=== PATIENT | female | born 1950 | race Caucasian/White ===

== ENCOUNTER → 2024-01-24 | Outpatient (CLI) | payer MEDICARE, OTHER, SELFPAY ==
--- NOTE | 2024-01-24 14:30 | XR_ITS ---
Examination: Screening digital mammography, bilateral Computer aided detection 3-D breast Tomosynthesis, bilateral Date and time of exam: January 24, 2024 1423 hours Compared to mammograms dating to November 12, 2012 Indication: Screening Technique: Nonmagnified MLO, CC views of the breasts to been obtained, reconstructed from 3-D Tomosynthesis images. R2 computer aided detection program utilized for evaluation of suspicious masses and/or abnormal calcifications. 3-D Tomosynthesis images obtained. Findings: The breasts are extremely dense, which limits the sensitivity of mammography Benign calcifications. 3 mm circumscribed nodule 12:00 position right breast IMPRESSION: BI-RADS Category 0: Incomplete: Need additional imaging evaluation 3 mm circumscribed nodule 12:00 position right breast, recommend follow-up spot tomographic views of this nodule as well as right breast sonography to complete the workup
== END | disposition home or self-care (01) ==
LOC: CDIM 14:06
PROVIDERS: Referring Provider Obstetrics & Gynecology; Visit Provider Obstetrics & Gynecology
DX: Z12.31 Encounter for screening mammogram for malignant neoplasm of breast (principal); R92.8 Other abnormal and inconclusive findings on diagnostic imaging of breast; N63.15 Unspecified lump in the right breast, overlapping quadrants
CPT/HCPCS: 77063; 77067

== ENCOUNTER → 2024-04-11 | Outpatient (CLI) | payer MEDICARE, OTHER, SELFPAY ==
--- NOTE | 2024-04-11 11:00 | XR_ITS ---
Examination: Breast ultrasound, unilateral, right complete Date and time of exam: April 11, 2024 1126 hours INDICATIONS: Mammogram January 24, 2024 3 mm circumscribed nodule 12:00 position right breast Technique: Real-time baez scale ultrasonographic imaging performed right breast including all 4 quadrants as well as nipple retroareolar and axillary region. Findings: 12:00 oval mass circumscribed 3 x 3 mm 8:00 oval mass circumscribed 3 x 2 mm IMPRESSION: BI-RADS Category 3: Probably benign findings One additional 6 month right breast sonogram follow-up is needed to document stability of nodules described above
--- NOTE | 2024-04-11 11:30 | XR_ITS ---
Examination: Diagnostic digital mammography, unilateral, right Computer aided detection 3-D breast Tomosynthesis, unilateral Date and time of exam: April 21, 2024 1141 hours INDICATIONS: Mammogram January 24, 2024 3 mm circumscribed nodule 12:00 position right breast Technique: Nonmagnified MLO, CC views of the right breast have been obtained, reconstructed from 3-D Tomosynthesis images. R2 computer aided detection program utilized for evaluation of suspicious masses and/or abnormal calcifications. 3-D Tomosynthesis images obtained. Findings: The breast is heterogeneously dense, which may obscure small masses 12:00 circumscribed nodule 3 mm is confirmed on the right breast sonogram today On the current study no suspicious mass is depicted Impression: BI-RADS category 2: Benign findings Return to yearly follow-up mammography Please see the right breast sonogram report today recommending six-month right breast sonogram follow-up to document stability of 12:00 and 8:00 nodules right breast
== END | disposition home or self-care (01) ==
LOC: CDIM 11:17
PROVIDERS: Referring Provider Obstetrics & Gynecology; Visit Provider Obstetrics & Gynecology
DX: R92.321 Mammographic fibroglandular density, right breast (principal); N63.15 Unspecified lump in the right breast, overlapping quadrants; N63.13 Unspecified lump in the right breast, lower outer quadrant
CPT/HCPCS: 76641; 77061; 77065; G0279

== ENCOUNTER 2025-02-01 13:02 | Inpatient (IN) | payer MEDICARE, OTHER, SELFPAY ==
[2025-02-01] VITALS (7 sets, daily range): BP systolic 111–137; BP diastolic 63–91; PULSE 66–111; RESP 16–99; TEMP 36.1–36.8; O2SAT 98–100; BMI 22.8; BMI 20.1
--- NOTE | 2025-02-01 13:11 | EKG_ITS ---
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
--- NOTE | 2025-02-01 13:22 | PD.EDCHEST ---
ED Chest Pain RME/HPI General Chief Complaint: Shortness of Breath/Dyspnea Stated Complaint: CHEST DISCOMFORT Time Seen by Provider: 02/01/25 14:04 Arrival date/time: 02/01/25 13:02 Limitations: no limitations RME / HPI RME / HPI narrative: DR. MELINA PARIS ED EVALUATION: 74-year-old female brought in by EMS for palpitations and chest pain described as a squishy pressure. She reports waking at 2:00 AM with sensation of her heart racing and feeling irregular. She felt well yesterday with no symptoms until this morning. At home her heart rate was noted to be 140, whereas her baseline is around 60. She exercises regularly. She follows with nut sifter Dr. Robbins, who has previously told her that her heart is structurally fine but she has an electrical problem. She has a history of tachycardia and atrial fibrillation in the past. Dr. Robbins contacted her this morning. No additional symptoms reported. Related Data Home Medications ?Medication ?Instructions ?Recorded ?Confirmed No Known Home Medications 02/01/25 02/01/25 Allergies Allergy/AdvReac Type Severity Reaction Status Date / Time ofloxacin (From Floxin) Allergy Severe Anaphylaxis Verified 02/01/25 13:29 azithromycin Allergy Verified 02/01/25 13:29 codeine Allergy Headache Verified 02/01/25 13:29 oxycodone Allergy Headache Verified 02/01/25 13:29 gluten AdvReac Depression Verified 02/01/25 13:29 DAIRY PRODUCTS AdvReac Mild Congested Uncoded 02/01/25 13:29 Review of Systems Review of Systems Systems Reviewed: All systems reviewed, normal except as documented Past Medical History Past Medical History NEUROLOGIC: Positive Neurological Disorders and Migraine; Negative Seizures CARDIAC: Positive Atrial Fibrillation; Negative Cardiac Disorders or Congestive Heart Failure RESPIRATORY: Positive Asthma (ALBUTEROL INHALER PRN); Negative Chronic Obstructive Pulmonary Disease (COPD) GASTROINTESTINAL: Negative Gastrointestinal Disorders GENITOURINARY: Negative Genitourinary Disorders or Renal Disease REPRODUCTIVE: Positive Previous Pregnancies MUSCULOSKELETAL: Positive Musculoskeletal Disorders and Osteoporosis (OSTEOPENIA) ENT: Positive Cataracts (BILATERAL) ENDOCRINE: Negative Endocrine Disorders, Diabetes Mellitus Type 1 or Diabetes Mellitus Type 2 HEMATOLOGIC: Negative Blood Disorders OTHER HISTORY: Positive Anesthesia Reactions (SEVERE NAUSEA), Chicken Pox, Measles and Mumps; Negative Falls, Blood Transfusions, Blood Transfusion Reaction, MRSA or Cancer Surgical History SURGICAL: Positive Joint Replacement (RIGHT KNEE), of Shoulder Sx (BILAT.) and Knee Sx (R KNEE TOTAL REPLACEMENT & L KNEE SURGERIES) Social History SMOKING STATUS: Never smoker ED Exam General Limitations: Present no limitations General appearance: Present alert and in no apparent distress Head Head exam: Present atraumatic, normocephalic and normal inspection Eye Eye exam: Present normal appearance, PERRL and EOMI ENT ENT exam: Present normal exam, normal oropharynx and mucous membranes moist Neck Neck exam: Present normal inspection, full ROM and trachea midline Chest Chest inspection: Present normal inspection and symmetric chest wall rise Respiratory Respiratory exam: Present normal lung sounds bilaterally Cardiovascular Cardiovascular exam: Present tachycardia and irregular rhythm ( irregularly irregular rhythm) Abdominal Exam Abdominal exam: Present soft and normal bowel sounds Extremities Exam Extremities exam: Present normal inspection and full ROM Back Exam Back exam: Present normal inspection and full ROM Neurological Exam Neurological exam: Present alert, oriented X3 and CN II-XII intact Psychiatric Psychiatric exam: Present normal affect and normal mood Skin Skin exam: Present warm, dry, intact and normal color Course Quality Measures none Orders Category Date Time Status Fish Header Q4H START 00 Care 02/01/25 14:00 Active Continuous Pulse Oximetry NOW Care 02/01/25 14:01 Completed EKG (ED ONLY) *Do not use* NOW Care 02/01/25 13:11 Completed Insert IV NOW Care 02/01/25 14:00 Completed NPO after Midnight ONCE Care 02/01/25 14:58 Active Strict Intake and Output Routine Care 02/01/25 14:02 Ordered Consult to Cardiology Stat Cons 02/01/25 14:16 Ordered Diet Cardiac Diet 02/01/25 Dinner Active Diet NPO after Midnight Diet 02/02/25 00:01 Active CA echo doppler complete Stat Exams 02/01/25 14:00 Taken CXRP [XR chest 1V portable] Stat Exams 02/01/25 14:01 Completed EKG (ED Only) Stat Exams 02/01/25 13:11 Draft A1C [Glycohemoglobin w (eAG)] Stat Lab 02/01/25 14:15 Completed B-Type Natriuretic Peptide Stat Lab 02/01/25 14:15 Completed CBC Stat Lab 02/01/25 14:15 Completed CMP [Comprehensive Metabolic Panel] Stat Lab 02/01/25 14:15 Completed Drug Screen,Urine Stat Lab 02/01/25 16:35 Received Free T4 (Free Thyroxine) Stat Lab 02/01/25 14:15 Completed INR [Prothrombin Time with INR] Stat Lab 02/01/25 14:15 Completed Lactate (Lactic Acid) Stat Lab 02/01/25 14:15 Completed Lipid Panel Stat Lab 02/01/25 14:15 Completed Magnesium Stat Lab 02/01/25 14:15 Completed PTT [Partial Thromboplastin Time] Stat Lab 02/01/25 14:15 Completed Partial Thromboplastin Time AM DRAW Lab 02/03/25 05:00 Ordered Phosphorous Stat Lab 02/01/25 14:15 Completed Procalcitonin Stat Lab 02/01/25 14:15 Completed Prothrombin Time with INR AM DRAW Lab 02/03/25 05:00 Ordered TSH [Thyroid Stimulating Hormone] Stat Lab 02/01/25 14:15 Completed Troponin I Stat Lab 02/01/25 14:15 Completed Urinalysis, C/S if Indicated Stat Lab 02/01/25 16:35 Completed Heparin Inj Med 02/01/25 14:57 Discontinued 3,750 unit IV X1 ONE Heparin/D5w 25K 250 ML Ivpb [Heparin in D5w Ivpb] Med 02/01/25 15:00 Discontinued 25,000 unit in 250 ml IV 12 units/kg/hr Metoprolol Succinate Xl [Toprol Xl] Med 02/01/25 14:15 Active 50 mg PO QDAY Potassium Chloride [K-Dur] Med 02/01/25 14:57 Discontinued 20 meq PO X1 ONE Vital Signs Vital signs: Vital Signs Temperature 98.2 F 02/01/25 13:18 Pulse Rate 100 02/01/25 13:18 Respiratory Rate 19 02/01/25 13:18 Blood Pressure 137/91 H 02/01/25 13:18 Pulse Oximetry (%) 100 02/01/25 13:18 Oxygen Delivery Method Room Air 02/01/25 13:18 Chest Pain MDM Narrative MDM Narrative:: I, Skye Paredes, am scribing for and in the presence of Dr. Shah. 74-year-old female with palpitations and chest pressure, irregularly irregular rhythm on exam, and history of atrial fibrillation and tachycardia. At 13:56, cardiology consult with Dr. Stockton, who recommended admission. Patient to be admitted to hospitalist service. Differential diagnoses include atrial fibrillation with rapid ventricular response, supraventricular tachycardia, and other arrhythmia. My interpretation: EKG performed at 1316 hours, atrial fibrillation, rate 92, normal axis, Q wave in leads 1-3, no STEMI Patient data External records reviewed:: [facility] previous records and EMS form Clinical information provided by:: patient and EMS Social determinants that could affect healthcare access:: none Patient has the following chronic illnesses:: She follows with nut sifter Dr. Robbins, who has previously told her that her heart is structurally fine but she has an electrical problem. She has a history of tachycardia and atrial fibrillation in the past. How is presenting disease/condition affected by chronic disease/condition?: exacerbated by Evaluation data The following diagnostics were reviewed and interpreted by me:: lab results, radiology exam(s) and EKG tracing(s) (My interpretation: EKG performed at 1316 hours, atrial fibrillation, rate 92, normal axis, Q wave in leads 1-3, no STEMI) Lab and/or radiology exams considered but not ordered:: none Interpretation Summary: See MDM narrative above. RADIOLOGY Procedure(s): XR chest 1V portable Accession Number(s): [id number] cc: Ortiz Gomez MD; NO PRIMARY/FAMILY,PHYSICIAN; Yanely Hendrickson MD~ EXAMINATION: AP chest single view TECHNIQUE: AP portable upright chest single view Date and time: February 01, 2025, 1400 hours, comparison February 22, 2017 INDICATIONS: Cardiac palpitations today. FINDINGS: Normal heart size No lobar pneumonia or pulmonary edema. Severe osteopenia IMPRESSION: No lobar pneumonia or pulmonary edema Dictated By: Ortiz Gomez MD Medications / Prescriptions Medications or Prescriptions considered but not ordered:: none Medication administrations:: Medication Administration History Acetaminophen (Acetaminophen 325 Mg Tablet) 650 mg PO Q6H PRN PRN Reason: Fever >100.4 or pain 1-3 Stop: 03/03/25 15:30 Heparin Sodium/Dextrose (Heparin In D5w Ivpb) 25,000 unit in 250 mls @ 7.468 mls/hr IV .Q24H [facility]; Protocol Stop: 02/15/25 17:29 Metoprolol Succinate (Metoprolol Succinate Xl 25 Mg Tabcr) 50 mg PO QDAY YOANDY Stop: 03/03/25 14:14 Last Admin: 02/01/25 15:03 Dose: 50 mg Documented By: GM Ondansetron HCl (Ondansetron Inj 2 Mg/Ml Inj 2 Ml) 4 mg IVP Q6H PRN; Protocol PRN Reason: NAUSEA OR VOMITING Stop: 03/03/25 15:30 Sennosides (Senna Tablet) 1 tab PO QDAY PRN; Protocol PRN Reason: constipation Stop: 03/03/25 15:30 Discontinued Medications Heparin Sodium (Porcine) (Heparin Sod Inj 5000 Unit/Ml Vial) 3,750 unit 60 unit/kg (3750 unit) IV X1 ONE; Protocol Stop: 02/01/25 14:58 Last Admin: 02/01/25 14:59 Dose: Not Given Documented By: GM Non-Admin Reason: Cancelled by Provider Heparin Sodium (Porcine) (Heparin Sod Inj 5000 Unit/Ml Vial) 3,300 unit 60 unit/kg (3300 unit) IV X1 ONE; Protocol Stop: 02/01/25 17:26 Heparin Sodium/Dextrose (Heparin In D5w Ivpb) 25,000 unit in 250 mls @ 7.468 mls/hr IV .Q24H YOANDY; Protocol Stop: 02/15/25 14:59 Last Admin: 02/01/25 14:59 Dose: Not Given Documented By: Non-Admin Reason: Cancelled by Provider Potassium Chloride (Potassium Chloride 20 Meq Tabcr) 20 meq PO X1 ONE Stop: 02/01/25 14:58 Last Admin: 02/01/25 15:03 Dose: 20 meq Documented By: see above Consultations Consultation(s) initiated? (list below): Yes Consultation #1 (Physician, Specialty, Details): See MDM narrative above. Diagnosis Chest Pain Differential Diagnosis: other (atrial fibrillation with rapid ventricular response, supraventricular tachycardia, and other arrhythmia) Most likely diagnosis given after review of the tests above:: Rapid atrial fibrillation Palpitations Chest pain Admission Indicated Admission indicated?: indicated Admission Request Was there a request for admission?: Yes Admission Attestation Admission request attestation: Discussed case with [] from Hospitalist service regarding admission. Discussed patients ED course, exam findings, labs, and radiology results. The Hospitalist [agrees,declines] to accept the patient for admission. Disposition Plan Disposition Plan: Admit Critical Care Time Critical Care Time Critical Care Time: Yes Total Critical Care Time (min.): 45 Attestation: The high probability of sudden, clinically significant deterioration in the patient?s condition required the highest level of my preparedness to intervene urgently. The services I provided to this patient were to treat and/or prevent clinically significant deterioration. Services included the following: chart data review, reviewing nursing notes and/or old charts, documentation time, treasury management sales consultant collaboration regarding findings and treatment options, medication orders and management, direct patient care, vital sign assessments and ordering, interpreting and reviewing diagnostic studies and lab tests. Aggregate critical care time includes only time during which I was engaged in work directly related to the patient?s care, as described above, whether at bedside or elsewhere in the Emergency Department. It did not include time spent performing other reported procedures or the services of residents, students, nurses or physician assistants. Discharge Plan Plan Patient Disposition: Admit Acute Care w/in Hospital Problem List Clinical Impression: Atrial fibrillation, rapid, Heart palpitations, Chest pain
--- NOTE | 2025-02-01 14:00 | ECHO_ITS ---
Patient Info Name: Lolis Pinedo Age: 74 years : 1950 Gender: Female Ht: 165 cm Wt: 62 kg BSA: 1.69 m2 BP: 137 / 84 mmHg HR: 99 bpm Heart Rhythm: Atrial Fibrillation Exam Date: 02/01/2025 3:04 PM Admit Date: 02/01/2025 Site: [facility] Room Number: ED5 Patient Status: I Exam Type: CA echo doppler complete Oracle Analyst: Faye Agarwal Ordering Physician: Yanely Hendrickson Study Info Indications A Fib RVR - Primary Location: S2NX Left Ventricular Outflow Tract Name Value Normal LVOT 2D LVOT Diameter 1.9 cm LVOT Doppler LVOT Peak Velocity 80 cm/s LVOT Mean Gradient 1 mmHg LVOT VTI 15 cm LVOT VTI/AV VTI Ratio 0.8 LVOT Stroke Volume 42 ml Pulmonic Valve Name Value Normal PV Doppler PV Peak Velocity 87 cm/s Mitral Valve Name Value Normal MV Doppler MV Mean Gradient 2 mmHg MV Decel Floyd 293 cm/s2 MV PHT 67 ms MV Area (PHT) 3.3 cm2 4.0-5.0 MV Area (Cont Eq VTI) 1.4 cm2 MV Diastolic Function MV E Peak Velocity 68 cm/s Tricuspid Valve Name Value Normal TV Regurgitation Doppler TR Peak Velocity 198 cm/s Estimated PAP/RSVP RA Pressure 3 mmHg <=5 PA Systolic Pressure 19 mmHg <36 RV Systolic Pressure 19 mmHg <36 Aortic Valve Name Value Normal AV 2D/MM AV Cusp Sep (MM) 0.9 cm AV Doppler AV Peak Velocity 118 cm/s AV Mean Gradient 2 mmHg AV VTI 20 cm AV Area (Cont Eq VTI) 2.1 cm2 >=3.0 AV Area (Cont Eq Tobias) 1.9 cm2 AV DI (Tobias) 0.67 AV Regurgitation 2D LVOT Area 2.8 cm2 Ventricles Name Value Normal LV Dimensions 2D/MM IVS Diastolic Thickness (2D) 0.8 cm 0.6-0.9 LVID Diastole (2D) 3.3 cm 3.8-5.2 LVIW Diastolic Thickness (2D) 0.9 cm 0.6-0.9 LVID Systole (2D) 2.5 cm 2.2-3.5 LVOT Diameter 1.9 cm LV Mass (2D Cubed) 74.70 g 67.00-162.00 LV Mass Index (2D Cubed) 44 g/m2 43-95 Relative Wall Thickness (2D) 0.55 <=0.42 IVS/LVIW Diastolic Thickness (2D) 0.89 0.00-1.50 LV Fractional Shortening/Ejection Fraction 2D/MM LV Fractional Shortening (2D) 24 % 27-45 LV EF (2D Teichholz) 49 % Atria Name Value Normal LA Dimensions LA Volume (4C A-L) 20 ml Left Ventricle Left ventricular chamber dimension is normal. Left ventricular systolic function is normal with visually estimated ejection fraction of 60-65%. There is concentric remodeling noted in the left ventricle. The inferoseptal wall is hypokinetic. The inferior wall, anterior wall, anterolateral wall, inferolateral wall, basal anteroseptal, and mid anteroseptal are not scored. Left ventricular segmental wall motion is abnormal. There is indeterminate diastolic function in the left ventricle. Right Ventricle Right ventricular chamber dimension is normal. Right ventricular systolic function is normal. Left Atrium Left atrial chamber dimension is normal. Right Atrium Right atrial chamber dimension is normal. Aortic Valve The aortic valve is trileaflet. There is no aortic valve sclerosis. There is no aortic valve stenosis with a peak velocity of 118 cm/s, mean gradient of 2 mmHg, and aortic valve area of 2.1 cm2. There is mild aortic valve regurgitation. Pulmonic Valve The pulmonic valve is normal. There is no pulmonic valve stenosis. There is no pulmonic regurgitation. Mitral Valve The mitral valve has normal leaflets. There is no mitral valve stenosis. There is mild mitral valve regurgitation. Tricuspid Valve The tricuspid valve leaflets are normal. There is no tricuspid valve stenosis. There is mild tricuspid valve regurgitation. No pulmonary hypertension, estimated pulmonary arterial systolic pressure is 19 mmHg and systemic blood pressure of 137 mmHg in systole. Pericardium/Pleural The pericardium appears normal. There is no pericardial effusion. No pleural effusion visualized. Inferior Vena Cava Normal inferior vena cava with >50% collapse upon inspiration consistent with normal right atrial pressure, 3 mmHg. Aorta The aortic measurements are indexed to age and body surface area. The aortic root at the sinus of Valsalva is not well visualized. The prox ascending aorta is not well visualized. Summary 1. Left ventricle size is normal and systolic function is normal. Estimated ejection fraction is 60-65%. There is indeterminate diastolic function. 2. Right ventricle chamber size is normal and systolic function is normal. Estimated RVSP is 19 mmHg. 3. There is mild mitral and tricuspid valve regurgitation. 4. Normal IVC with estimated RA pressure 3 mmHg. Report Signatures Finalized by Michael Stockton on 02/01/2025 09:18 PM
--- NOTE | 2025-02-01 14:01 | XR_ITS ---
EXAMINATION: AP chest single view TECHNIQUE: AP portable upright chest single view Date and time: February 01, 2025, 1400 hours, comparison February 22, 2017 INDICATIONS: Cardiac palpitations today. FINDINGS: Normal heart size No lobar pneumonia or pulmonary edema. Severe osteopenia IMPRESSION: No lobar pneumonia or pulmonary edema
--- NOTE | 2025-02-01 14:15 | PD.RESCONSUL ---
HPI Data of Consult Patient: new to practice Consult date: 02/01/25 Requesting Physician: Dr Tal Shah MD Admitting Provider: Dr Nini Partida MD Attending Provider: Dr Michael Stockton MD Consult Narrative Reason for consult: Palpitations History of present illness: Ms. Pinedo is a 74-year-old female with no significant past medical history who presented to [facility] emergency department on February 01, 2025 with a chief complaint of chest pressure and palpitations. She reported that around 2 AM this morning she woke up with 10/10 left upper chest pressure radiating to the left jaw associated with diaphoresis and shortness of breath, during which she noted her heart rate to be 140?160 during that time. She currently endorses significant palpitations which are symptomatic and feels like her heart is beating out of her chest. Patient complained of having similar episodes a few times over the past years and she is following health sanitarian Dr. Robbins outpatient for similar complaints but all her outpatient workup was negative. She also reported that for the past week and a half she has been having flulike symptoms with low-grade fever sore throat and some congestion which resolved about 2 days ago and during this time she has been not feeling well. Patient currently denies any dizziness, falls, syncope, presyncope, shortness of breath, PND, leg swelling and orthopnea. ED course: Blood pressure in the emergency department on presentation 137/91, heart rate 100 otherwise was unremarkable. ED labs pertinent for alk phos 45, BNP 253 HDL 66. Urine analysis shows pH 7.5 drug screen negative. Chest x-ray in ED shows no lobar pneumonia or pulmonary edema. EKG in the emergency department shows atrial fibrillation, rate controlled rate 92. Patient was given 20 mEq of potassium, metoprolol succinate 50 mg p.o. and was started on heparin drip in the ED Cardiology consulted for new onset atrial fibrillation. cc:: cc: Review of Systems Review of Systems Systems Reviewed: All systems reviewed, normal except as documented Past Medical History Past Medical History Comments PMH COMMENT: PMH: No significant past medical history PSHx: Right knee surgery 2020 skiing accident, right shoulder surgery in 2019 Allergies: azithromycin-itching, fluoroquinolones-itching, codeine/oxycodone?headache, gluten, dairy products Medications: None -Smoking: Denies -Alcohol Use: Denies -Illicit Drug Use: Denies -Martial Status: Unmarried, no children, lives alone at home in [place] independent IADLs ADLs, family in [place] Family History: Father passed stroke age 90, mother had pacemaker passed at age 94, dad's brother from unknown cancer 20-30 years ago unknown age Exam Vital Signs Temp Pulse Resp BP Pulse Ox O2 Del Method 98.2 F 100 19 137/91 H 100 Room Air 02/01/25 13:18 02/01/25 13:18 02/01/25 13:18 02/01/25 13:18 02/01/25 13:18 02/01/25 13:18 Narrative Exam Physical Exam General: Awake and in no acute distress. Conversational and non-toxic appearing. HEENT: Normocephalic, atraumatic, mucous membranes moist. Heart: Irregular rate controlled, no murmurs. Lungs: Clear to auscultation with no wheezing or crackles. Abdomen: Soft, nondistended, nontender, positive bowel sounds. ?No guarding or rebound tenderness. Neurologic: Alert and oriented x3, no gross neurological deficit, and patient able to move all 4 extremities. Extremities: No edema. Skin: No rash or ecchymoses. Results Labs 02/02/25 07:05 02/02/25 07:05 Quality Measures Quality Measures none Advance care planning discussed with:: patient Medications Home Medications and Allergies Home Medications ?Medication ?Instructions ?Recorded ?Confirmed ?Type No Known Home Medications 02/01/25 02/01/25 History Allergies Allergy/AdvReac Type Severity Reaction Status Date / Time ofloxacin (From Floxin) Allergy Severe Anaphylaxis Verified 02/01/25 13:29 azithromycin Allergy Verified 02/01/25 13:29 codeine Allergy Headache Verified 02/01/25 13:29 oxycodone Allergy Headache Verified 02/01/25 13:29 gluten AdvReac Depression Verified 02/01/25 13:29 DAIRY PRODUCTS AdvReac Mild Congested Uncoded 02/01/25 13:29 Visit Medications Metoprolol Succinate (Metoprolol Succinate Xl 25 Mg Tabcr) 50 mg PO QDAY YOANDY Stop: 03/03/25 14:14 Assessment & Plan Plan Assessment and plan: Summary: Ms. Pinedo is a 74-year-old female with no significant past medical history who presented to [facility] emergency department on February 01, 2025 with a chief complaint of chest pressure and palpitations. Patient admitted for new onset atrial fibrillation rapid ventricular response. #New onset atrial fibrillation with rapid ventricular response #Symptomatic palpitations Reported that around 2 AM this morning she woke up with 10/10 left upper chest pressure radiating to the left jaw associated with diaphoresis and shortness of breath, during which she noted her heart rate to be 140?160 during that time. Endorses significant palpitations which are symptomatic and feels like her heart is beating out of her chest. Complained of having similar episodes a few times over the past years and she is following health sanitarian Dr. Robbins outpatient for similar complaints but all her outpatient workup was negative. Reported that for the past week and a half she has been having flulike symptoms with low-grade fever sore throat and some congestion which resolved about 2 days ago and during this time she has been not feeling well. Patient currently denies any dizziness, falls, syncope, presyncope, shortness of breath, PND, leg swelling and orthopnea. EKG in the emergency department shows atrial fibrillation, rate controlled rate 92. Patient was given 20 mEq of potassium, metoprolol succinate 50 mg p.o. and was started on heparin drip in the ED Troponin on presentation less than 0.020, BNP 253 HDL 66, LDL 69, cholesterol 144, triglyceride 47 TSH 1.72, free T4 1.12, hemoglobin A1c 5.2 [id number] Score for Atrial Fibrillation Stroke Risk: 2 points; 2.9% risk of stroke/TIA/systemic embolism HAS-BLED Score for Major Bleeding Risk: 1 points, 1.02 bleeds per 100 patient-years in another validation study Recommendations: - Continue metoprolol succinate 50 mg daily - Start heparin GTT - Keep n.p.o. after midnight, will consider ANGELO with cardioversion in a.m. - Keep potassium greater than 4 and magnesium greater than 2 at all times - Ordered echocardiogram to assess LA size, LV/RV size and function Thank you for the consult and allowing to participate in the care of the patient. Cardiology will continue to follow. Case discussed with Attending Physician Dr. Michael Hendrickson MD Internal Medicine PGY-2 Disclaimer: This note was dictated by speech recognition. Minor errors in photogeologist may be present due to voice recognition software. Attending Provider Attestation/Addendum I have personally seen and examined the patient separately on the above date of service and discussed the plan of care with the resident. I reviewed the resident Dr. Yanely Hendrickson consultation progress note and agree with the resident findings and plan in the note above and have also edited the documentation to reflect my findings and plan. Ms. Pinedo is a 74-year-old female with no significant past medical history who presented to [facility] emergency department on February 01, 2025 with a chief complaint of chest pressure and palpitations. Patient admitted for new onset atrial fibrillation rapid ventricular response. Prior to the admission patient did have flulike symptoms over the last week which could be a trigger for the atrial fibrillation EKG confirmed atrial fibrillation and chest Vascor is elevated. Heart rate is around 100 bpm. Recommend to start metoprolol XL 50 mg once daily for now and heparin drip for anticoagulation. Can change to Eliquis if there is no contraindications for long-term anticoagulation. Patient heart rate is 140 to 160 bpm at home and now still feels a palpitation. Patient continues to be symptomatic and will need to be cardioverted. Will check electrolytes and replete them accordingly. Keep potassium greater than 4 magnesium greater than 2.0. Continue telemetry. Troponins negative. BNP only 253. If patient does not convert to sinus rhythm by tomorrow morning and continues to be symptomatic then we will plan for ANGELO with cardioversion. Explained the risk benefits and alternatives of performing the both the ANGELO and cardioversion in detail with the patient. Patient denies any kind of swallowing problems or any kind of esophageal interventions or previous surgeries. Patient denies any kind of gastric ulcers bleeding and any other hematemesis or hematochezia. Patient denies any issues with anesthesia previously. Patient explained all the risks, benefits and alternatives of ANGELO including the risk of perforation, bleeding, respiratory failure secondary to sedation, injury to teeth gums esophagus and stomach. Patient understands all risks and benefits and provided consent for the procedure. We will keep her n.p.o. overnight and plan for ANGELO in the morning. Michael Stockton M.D. Interventional Cardiology
[2025-02-01 14:19] LABS: Lactate (Lactic Acid) 1.1 mMol/L (0.4-2.0)
[2025-02-01 14:24] LABS: Basophils # (Auto) 0.1 Thou/mm3 (0.0-0.2); Basophils % (Auto) 1 % (0-2.5); Eosinophils # (Auto) 0.1 Thou/mm3 (0.0-0.5); Eosinophils % (Auto) 1 % (0-10); Hematocrit 39.5 % (36.0-46.0); Hemoglobin 13.6 g/dL (12.0-16.0); Immature Granulocytes Auto 0.02 Thou/mm3 (0.00-0.00); Lymphocytes # (Auto) 1.8 Thou/mm3 (1.0-4.8); Lymphocytes % (Auto) 29 % (10-50); Mean Corpuscular HGB Conc 34.4 g/dl (31.0-37.0); Mean Corpuscular Hemoglobin 31.1 pg (25.0-35.0); Mean Corpuscular Volume 90 fL (80-100); Monocytes # (Auto) 0.6 Thou/mm3 (0.0-0.8); Monocytes % (Auto) 10 % (0-12); Neutrophils # (Auto) 3.6 Thou/mm3 (1.8-7.7); Neutrophils % (Auto) 59 % (37-80); Nucleated Red Blood Cell # 0.00 Thou/mm3 (0.00-0.00); Nucleated Red Blood Cell % 0 /100 WBC (0); Platelet Count 285 Thou/mm3 (140-440); RDW Standard Deviation 39.4 fL (36.4-46.3); Red Blood Count 4.38 Miln/mm3 (4.00-5.20); White Blood Count 6.1 Thou/mm3 (3.6-11.0)
[2025-02-01 14:40] LABS: INR 1.0 (0.9-1.3); Partial Thromboplastin Time 28.4 Seconds (22.0-36.0); Prothrombin Time 10.5 Seconds (9.0-12.2)
[2025-02-01 14:41] LABS: B-Type Natriuretic Peptide 253 pg/mL (0-100)
[2025-02-01 14:47] LABS: Alanine Aminotransferase 15 U/L (10-49); Albumin, Serum 4.4 gm/dL (3.4-4.8); Albumin/Globulin Ratio 1.9 (1.2-2.2); Alkaline Phosphatase 45 U/L (46-116); Anion Gap 9 (7-16); Aspartate Amino Transferase 25 U/L (0-34); BUN/Creatinine Ratio 13 Ratio (12-20); Bilirubin,Total 0.6 mg/dL (0.3-1.2); Blood Urea Nitrogen 10 mg/dL (9-23); Calcium 9.1 mg/dL (8.3-10.6); Calcium (Corrected) 9.1 mg/dL (8.5-10.1); Carbon Dioxide 30.4 mMol/L (20.0-31.0); Cardiac Risk Estimate 2.2 RATIO (3.7-5.6); Chloride 106 mMol/L (98-107); Cholesterol 144 mg/dL (132-200); Creatinine (Component) 0.8 mg/dL (0.6-1.3); Estimated Creatinine Clearance 56.4 mL/min (>60); Free T4 (Free Thyroxine) 1.12 ng/dL (0.89-1.76); Globulin 2.3 gm/dL (2.3-3.5); Glucose 92 mg/dL (74-106); HDL Cholesterol 66 mg/dL (40-60); Magnesium 2.1 mg/dL (1.6-2.6); Osmolality,Calculated 287 (275-295); Phosphorous 3.4 mg/dL (2.4-5.1); Potassium 3.9 mMol/L (3.4-5.1); Sodium 145 mMol/L (136-145); Thyroid Stimulating Hormone 1.72 uIU/mL (0.55-4.78); Total Protein 6.7 gm/dL (5.7-8.2); Troponin I < 0.020 ng/mL (0.0-0.045); eGFR > 60 See Note
[2025-02-01 15:01] LABS: Glucose Estimated Average 103 mg/dL (80-131); Hemoglobin A1C 5.2 % Hgb (4.8-6.0)
[2025-02-01] MEDS: METOPROLOL SUCCINATE XL 25 MG TABCR 50 MG PO (15:03)
[2025-02-01 15:05] LABS: LDL Cholesterol,Calculated 69 mg/dL (0-130); Procalcitonin < 0.04 ng/ml (0.0-0.49); Triglycerides 47 mg/dL (30-150)
--- NOTE | 2025-02-01 15:33 | PD.RESHP ---
Documentation for date of: 02/01/25 HPI History of Present Illness Chief complaint: Chest pressure and palpitations History of present illness: Lolis Pinedo 74F pmhx significant for paroxysmal atrial fibrillation (no anticoag) who presents with 1 day of chest pressure and palpitations. Patient endorses that for the past week and a half she has been sick with flulike symptoms with low-grade fever, sore throat and congestion which resolved on its own about 2 days ago. Yesterday she endorsed heavy activity such as cleaning drains and refinishing furniture, no chest pain during exertion. At about 2 AM this morning woke up to 10/10 left upper chest pressure radiating to left jaw, associated with diaphoresis and shortness of breath. At the time, she noted her HR varied from 140-160 bpm. Denies dyspnea on exertion, PND orthopnea. Chest pain not reproducible with palpation or positional dependent. States that these episodes have happened a few times over the past few years however resolved within 12 hours where this current episode is persistent prompting current ED visit. Patient denies urinary symptoms, abdominal pain or nausea vomiting. Colonoscopy one year ago normal. PMHx: as above Surgical Hx: Right knee surgery 2020 skiing accident, right shoulder surgery in 2019 FHx: Father passed stroke age 90, mother had pacemaker passed at age 94, dad's brother from unknown cancer 20-30 years ago unknown age Social Hx: Denies tobacco, alcohol, recreational/illicit substance use. Lives at home alone in [place], independent with all ADLs, walks without assistance. Allergies: azithromycin itching, fluoroquinolones itching Medications: None In ED, BP 137/91 HR 100 RR 19 afebrile satting 100% RA, LA significant labs include BNP 253, trops neg. In ED, given metoprolol XL 50 mg and KCl 20 meq. EKG atrial fibrillation rate 92 QTC 409. Echo and CXR taken. Patient was admitted for atiral fibrillation RVR. Review of Systems Review of Systems Systems Reviewed: All systems reviewed, normal except as documented Exam Vital Signs Temp Pulse Resp BP Pulse Ox O2 Del Method 98.2 F 89 17 137/84 H 98 Room Air 02/01/25 13:18 02/01/25 15:06 02/01/25 15:04 02/01/25 15:04 02/01/25 15:04 02/01/25 15:04 Narrative Exam GENERAL: AOx3, no acute distress, appears younger than stated age HEENT: mucous membranes moist, bilateral sclera anicteric CARDIOVASCULAR: regular rate and irregular rhythm, S1/S2 present, no murmurs appreciated PULMONARY: clear to auscultation bilaterally, no rales/rhonchi/wheezes ABDOMINAL: soft, non-tender, non-distended, no rebound/guarding, bowel sounds present EXTREMITIES: no peripheral edema SKIN: warm and dry, intact, no rashes NEURO: CN II-XII grossly intact, no focal deficits, alert, following commands Results: Labs 02/02/25 07:05 02/02/25 07:05 Labs: Short CBC 02/01/25 Range/Units 14:15 WBC 6.1 (3.6-11.0) Thou/mm3 Hgb 13.6 (12.0-16.0) g/dL Hct 39.5 (36.0-46.0) % Plt Count 285 (140-440) Thou/mm3 BMP 02/01/25 14:15 Sodium 145 Potassium 3.9 Chloride 106 Carbon Dioxide 30.4 BUN 10 Creatinine 0.8 Glucose 92 Calcium 9.1 Cardiac Enzymes 02/01/25 Range/Units 14:15 Troponin I < 0.020 (0.0-0.045) ng/mL Liver Function 02/01/25 Range/Units 14:15 Total Bilirubin 0.6 (0.3-1.2) mg/dL AST 25 (0-34) U/L ALT 15 (10-49) U/L Alkaline Phosphatase 45 L (46-116) U/L Albumin 4.4 (3.4-4.8) gm/dL Quality Measures Quality Measures none Advance care planning discussed with:: patient Medications Home Medications and Allergies Home Medications ?Medication ?Instructions ?Recorded ?Confirmed ?Type No Known Home Medications 02/01/25 02/01/25 History Allergies Allergy/AdvReac Type Severity Reaction Status Date / Time ofloxacin (From Floxin) Allergy Severe Anaphylaxis Verified 02/01/25 13:29 azithromycin Allergy Verified 02/01/25 13:29 codeine Allergy Headache Verified 02/01/25 13:29 oxycodone Allergy Headache Verified 02/01/25 13:29 gluten AdvReac Depression Verified 02/01/25 13:29 DAIRY PRODUCTS AdvReac Mild Congested Uncoded 02/01/25 13:29 Visit Medications Acetaminophen (Acetaminophen 325 Mg Tablet) 650 mg PO Q6H PRN PRN Reason: Fever >100.4 or pain Stop: 03/03/25 15:30 Heparin Sodium/Dextrose (Heparin In D5w Ivpb) 25,000 unit in 250 mls @ 7.468 mls/hr IV .Q24H YOANDY; Protocol Stop: 02/15/25 14:59 Last Admin: 02/01/25 14:59 Dose: Not Given Metoprolol Succinate (Metoprolol Succinate Xl 25 Mg Tabcr) 50 mg PO QDAY YOANDY Stop: 03/03/25 14:14 Last Admin: 02/01/25 15:03 Dose: 50 mg Ondansetron HCl (Ondansetron Inj 2 Mg/Ml Inj 2 Ml) 4 mg IVP Q6H PRN; Protocol PRN Reason: NAUSEA OR VOMITING Stop: 03/03/25 15:30 Sennosides (Senna Tablet) 1 tab PO QDAY PRN; Protocol PRN Reason: constipation Stop: 03/03/25 15:30 Discontinued Medications Heparin Sodium (Porcine) (Heparin Sod Inj 5000 Unit/Ml Vial) 3,750 unit 60 unit/kg (3750 unit) IV X1 ONE; Protocol Stop: 02/01/25 14:58 Last Admin: 02/01/25 14:59 Dose: Not Given Potassium Chloride (Potassium Chloride 20 Meq Tabcr) 20 meq PO X1 ONE Stop: 02/01/25 14:58 Last Admin: 02/01/25 15:03 Dose: 20 meq Assessment & Plan Plan Lolis Pinedo 74F pmhx significant for paroxysmal atrial fibrillation (no anticoag) who presented to [facility] ED 02/01 with 1 day of chest pressure and palpitations, admitted for symptomatic atrial fibrillation RVR. #Symptomatic atrial fibrillation RVR #Hx of paroxysmal atrial fibrillation For 1.5 weeks prior to admission flulike symptoms with low-grade fever, sore throat and congestion which resolved on its own a day prior to admission. Day before admission, endorsed heavy activity but no chest pain during exertion. At about 2 AM morning of admission, woke up to 10/10 left upper chest pressure radiating to left jaw, associated with diaphoresis and shortness of breath. At the time, she noted her HR varied from 140-[address] Robbins intermittently and is not on any blood thinner or rate controlling agents. Had similar symptoms over the past few years however all resolved within 12 hours and did not seek medical attention. a1c 5.2, TSH and T4 wnl, trig 47, chol 144, LDL 69, HDL 66 CHADSVASC 1, HASBLED 1 Plan: - Cardiology consulted, recs appreciated: ANGELO and cardioversion tomorrow for symptomatic atrial fibrillation RVR, NPO after midnight, heparin ggt, metoprolol XL 50 mg QD - F/u AM PT/INR and PTT - Keep K>4 and Mg>2 at all times Hospital management: Lines: PIV Diet: cardiac, NPO at midnight Bowel: Senna prn GI prophylaxis: not indicated DVT prophylaxis: heparin ggt Disposition: tele, ANGELO and cardioversion tomorrow CODE STATUS: FULL CODE Plan of care discussed with attending Dr. Partida, and PGY-3 Dr. Palma. Micki Tanner, DO PGY-1 Internal Medicine Senior Resident Attestation: The patient is a 74-year-old female with significant past medical history of atrial fibrillation not on any anticoagulation who presented with chief complaint of chest pressure and palpitation for about 1 days, after being sick for about a week with flulike syndrome, associated with low-grade fever, sore throat that has already resolved about 2 days ago. The patient woke up this morning with 10/10 left upper chest pressure radiating to left jaw, associated with SOB and diaphoresis. She continuously monitored her heart rate, and was ranging from 140 to 160 bpm. She denied any orthopnea or PND, and chest when was nonpositional, reported having similar episodes couple times in the last year but used to resolve on its own, but this time this has been persistent. The patient's potassium was 3.9, repleted with 20 mEq of p.o. potassium, magnesium was 2.1. Her TSH and free T4 WNL. UA pending, U tox pending. TTE pending, chest x-ray normal as interpreted by me, and EKG revealed atrial fibrillation. [facility]ative [facility] Aide Dr. Stockton was consulted, who recommended starting the patient on metoprolol succinate 50 Mg daily, heparin drip, and keeping the patient n.p.o., will proceed with ANGELO tomorrow morning, and possible electrical cardioversion. I discussed with and supervised the research program intern physician involved in the care of this patient. I personally saw and examined the patient and discussed the assessment and plan with the entire medicine team, including my attending. I agree with the assessment and plan as documented above. Praneeth Palma MD PGY3 Internal Medicine Attending Provider Attestation/Addendum I have seen and examined the patient. I was physically present for the mcclain portions of the services provided including history, physical exam, diagnosis, treatment plans and orders. I agree with assessment and plan of care as documented by residents. After examination of the patient and review of the clinical data I feel that this patient needs admission to the hospital for further treatment/evaluation. Even though this this note was carefully revised there may still be minor errors in bench worker helper due to voice recognition software. Nini Partida MD
[2025-02-01 16:43] LABS: Collection Type, Urine Clean Catch
[2025-02-01 17:02] LABS: Bilirubin,Urine Negative (Negative); Blood,Urine Negative (Negative); Clarity,Urine Clear (Clear/Hazy); Color,Urine Colorless (Lt Yel-Yel); Culture Indicated,Urine Not Indicated; Glucose, Urine Negative (Negative); Hyaline Casts,Urine < 1 /hpf (0-1); Ketones,Urine Negative (Negative); Leukocyte Esterase,Urine Negative (Negative); Nitrite,Urine Negative (Negative); PH,Urine 7.5 (5.0-7.0); Protein,Urine Negative (Neg - Trace); RBC,Urine 2 /hpf (0-3); Specific Gravity,Urine 1.007 (1.001-1.035); Squamous Epithelial Cell,Urine < 1 /hpf (0-5); Urobilinogen,Urine Negative mg/dL (0.0-1.0); WBC,Urine < 1 /hpf (0-5)
[2025-02-01] MEDS: HEPARIN SOD INJ 5000 UNIT/ML VIAL 3300 UNIT IV (17:38)
[2025-02-01] MEDS: Heparin/D5w 25K 250 ML Ivpb 25,000 UNIT/250 ML BAG 6.587 UNIT IV (17:56)
[2025-02-01 19:36] LABS: Amphetamine/Methamp Scrn,U Negative (Negative); Barbiturate Screen,Urine Negative (Negative); Benzodiazepines Screen,Urine Negative (Negative); Benzoylecgonine Screen, Ur Negative (Negative); Fentanyl Screen,Urine Negative (Negative); Opiate Screen,Urine Negative (Negative); THC Screen,Urine Negative (Negative)
[2025-02-02] VITALS (10 sets, daily range): BP systolic 107–127; BP diastolic 57–75; PULSE 58–86; RESP 8–99; TEMP 36.1–36.4; O2SAT 97–100; BMI 20.5
[2025-02-02 01:26] LABS: Partial Thromboplastin Time 71.4 Seconds (22.0-36.0)
[2025-02-02 08:06] LABS: Alanine Aminotransferase 12 U/L (10-49); Albumin, Serum 3.8 gm/dL (3.4-4.8); Albumin/Globulin Ratio 1.7 (1.2-2.2); Alkaline Phosphatase 39 U/L (46-116); Anion Gap 8 (7-16); Aspartate Amino Transferase 22 U/L (0-34); BUN/Creatinine Ratio 16 Ratio (12-20); Bilirubin,Total 0.6 mg/dL (0.3-1.2); Blood Urea Nitrogen 13 mg/dL (9-23); Calcium 8.7 mg/dL (8.3-10.6); Calcium (Corrected) 8.9 mg/dL (8.5-10.1); Carbon Dioxide 30.0 mMol/L (20.0-31.0); Chloride 107 mMol/L (98-107); Creatinine (Component) 0.8 mg/dL (0.6-1.3); Estimated Creatinine Clearance 55.3 mL/min (>60); Globulin 2.2 gm/dL (2.3-3.5); Glucose 91 mg/dL (74-106); Magnesium 2.1 mg/dL (1.6-2.6); Osmolality,Calculated 288 (275-295); Potassium 4.2 mMol/L (3.4-5.1); Sodium 145 mMol/L (136-145); Total Protein 6.0 gm/dL (5.7-8.2); eGFR > 60 See Note
[2025-02-02 08:10] LABS: Basophils # (Auto) 0.1 Thou/mm3 (0.0-0.2); Basophils % (Auto) 1 % (0-2.5); Eosinophils # (Auto) 0.2 Thou/mm3 (0.0-0.5); Eosinophils % (Auto) 4 % (0-10); Hematocrit 36.7 % (36.0-46.0); Hemoglobin 12.7 g/dL (12.0-16.0); Immature Granulocytes Auto 0.00 Thou/mm3 (0.00-0.00); Lymphocytes # (Auto) 2.8 Thou/mm3 (1.0-4.8); Lymphocytes % (Auto) 46 % (10-50); Mean Corpuscular HGB Conc 34.6 g/dl (31.0-37.0); Mean Corpuscular Hemoglobin 31.5 pg (25.0-35.0); Mean Corpuscular Volume 91 fL (80-100); Monocytes # (Auto) 0.6 Thou/mm3 (0.0-0.8); Monocytes % (Auto) 9 % (0-12); Neutrophils # (Auto) 2.5 Thou/mm3 (1.8-7.7); Neutrophils % (Auto) 41 % (37-80); Nucleated Red Blood Cell # 0.00 Thou/mm3 (0.00-0.00); Nucleated Red Blood Cell % 0 /100 WBC (0); Platelet Count 258 Thou/mm3 (140-440); RDW Standard Deviation 40.2 fL (36.4-46.3); Red Blood Count 4.03 Miln/mm3 (4.00-5.20); White Blood Count 6.2 Thou/mm3 (3.6-11.0)
[2025-02-02] MEDS: METOPROLOL SUCCINATE XL 25 MG TABCR 50 MG PO (08:59)
[2025-02-02 09:08] LABS: Partial Thromboplastin Time 52.1 Seconds (22.0-36.0)
--- NOTE | 2025-02-02 09:26 | PC.SS ---
Follow up note: Waiting ANGELO and Cardio Clearance.
--- NOTE | 2025-02-02 10:15 | EKG_ITS ---
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
--- NOTE | 2025-02-02 10:56 | PD.RESPRO ---
Documentation for date of: 02/02/25 Subjective Subjective Interval history: Patient currently is in sinus rhythm with blood pressure 115/75 with pulse rate 70. Patient do not need cardioversion and ANGELO. Denies any symptom of chest pain, palpitation, shortness of breath, nausea vomiting, or headache. Echo (02/01/2025) showed normal LV size and function with EF 60 to 65%. Normal RV size and function with estimated RVSP of 19 mmHg. Will continue metoprolol 50 mg p.o. daily Change heparin drip to Eliquis 5 mg p.o. twice daily on discharge. Patient is cleared to discharge in Cardiology standpoint view. Discharge patient on Eliquis 5mg po bid and Metoprolol 50mg po qd. Exam Vital Signs Temp Pulse Resp BP Pulse Ox O2 Del Method 97.1 F 70 18 115/75 99 Room Air 02/02/25 08:00 02/02/25 08:59 02/02/25 08:00 02/02/25 08:59 02/02/25 08:00 02/02/25 08:00 Narrative Exam General: Awake and in no acute distress. Conversational and non-toxic appearing. HEENT: Normocephalic, atraumatic, mucous membranes moist. Heart: Irregular rate controlled, no murmurs. Lungs: Clear to auscultation with no wheezing or crackles. Abdomen: Soft, nondistended, nontender, positive bowel sounds. ?No guarding or rebound tenderness. Neurologic: Alert and oriented x3, no gross neurological deficit, and patient able to move all 4 extremities. Extremities: No edema. Skin: No rash or ecchymoses. Objective Labs 02/02/25 07:05 02/02/25 07:05 Labs: Laboratory Results - last 24 hr 02/01/25 02/01/25 02/02/25 14:15 16:35 00:25 WBC 6.1 RBC 4.38 Hgb 13.6 Hct 39.5 MCV 90 MCH 31.1 MCHC 34.4 RDW Std Deviation 39.4 Plt Count 285 Neut % (Auto) 59 Lymph % (Auto) 29 [place] % (Auto) 10 Eos % (Auto) 1 Baso % (Auto) 1 Neut # (Auto) 3.6 Lymph # (Auto) 1.8 [place] # (Auto) 0.6 Eos # (Auto) 0.1 Baso # (Auto) 0.1 Immature Gran # (Auto) 0.02 H Absolute Nucleated RBC 0.00 Immature Gran % 0 Nucleated RBC % 0 PT 10.5 INR 1.0 APTT 28.4 71.4 H D Sodium 145 Potassium 3.9 Chloride 106 Carbon Dioxide 30.4 Anion Gap 9 BUN 10 Creatinine 0.8 Estim Creat Clear Calc 56.4 L eGFR > 60 BUN/Creatinine Ratio [address] Glu mg/dL 103 Hemoglobin A1c 5.2 Calculated Osmolality 287 Lactic Acid 1.1 Calcium 9.1 Corrected Calcium 9.1 Phosphorus 3.4 Magnesium 2.1 Total Bilirubin 0.6 AST 25 ALT 15 Alkaline Phosphatase 45 L Troponin I < 0.020 B-Natriuretic Peptide 253 H Total Protein 6.7 Albumin 4.4 Globulin 2.3 Albumin/Globulin Ratio 1.9 Triglycerides 47 Cholesterol 144 LDL Cholesterol, Calc 69 HDL Cholesterol 66 H Cholesterol/HDL Ratio 2.2 L Procalcitonin < 0.04 TSH 1.72 Free T4 1.12 Ur Collection Type Clean Catch Urine Color Colorless A Urine Clarity Clear Urine pH 7.5 H Ur Specific Graham 1.007 Urine Protein Negative Urine Glucose (UA) Negative Urine Ketones Negative Urine Blood Negative Urine Nitrite Negative Urine Bilirubin Negative Urine Urobilinogen (Auto) Negative Ur Leukocyte Esterase Negative Urine RBC 2 Urine WBC < 1 Ur Squamous Epith Cells < 1 Urine Bacteria None Hyaline Casts < 1 Ur Culture Indicated? Not Indicated Urine Opiates Screen Negative Urine Fentanyl Screen Negative Ur Barbiturates Screen Negative U Amphetamin/Meth Scrn Negative U Benzodiazepines Scrn Negative U Cocaine Metab Screen Negative U Marijuana (THC) Screen Negative 02/02/25 07:05 WBC 6.2 RBC 4.03 Hgb 12.7 Hct 36.7 MCV 91 MCH 31.5 MCHC 34.6 RDW Std Deviation 40.2 Plt Count 258 Neut % (Auto) 41 Lymph % (Auto) 46 [place] % (Auto) 9 Eos % (Auto) 4 Baso % (Auto) 1 Neut # (Auto) 2.5 Lymph # (Auto) 2.8 [place] # (Auto) 0.6 Eos # (Auto) 0.2 Baso # (Auto) 0.1 Immature Gran # (Auto) 0.00 Absolute Nucleated RBC 0.00 Immature Gran % 0 Nucleated RBC % 0 PT INR APTT 52.1 H D Sodium 145 Potassium 4.2 Chloride 107 Carbon Dioxide 30.0 Anion Gap 8 BUN 13 Creatinine 0.8 Estim Creat Clear Calc 55.3 L eGFR > 60 BUN/Creatinine Ratio [address] Glu mg/dL Hemoglobin A1c Calculated Osmolality 288 Lactic Acid Calcium 8.7 Corrected Calcium 8.9 Phosphorus Magnesium 2.1 Total Bilirubin 0.6 AST 22 ALT 12 Alkaline Phosphatase 39 L Troponin I B-Natriuretic Peptide Total Protein 6.0 Albumin 3.8 D Globulin 2.2 L Albumin/Globulin Ratio 1.7 Triglycerides Cholesterol LDL Cholesterol, Calc HDL Cholesterol Cholesterol/HDL Ratio Procalcitonin TSH Free T4 Ur Collection Type Urine Color Urine Clarity Urine pH Ur Specific Graham Urine Protein Urine Glucose (UA) Urine Ketones Urine Blood Urine Nitrite Urine Bilirubin Urine Urobilinogen (Auto) Ur Leukocyte Esterase Urine RBC Urine WBC Ur Squamous Epith Cells Urine Bacteria Hyaline Casts Ur Culture Indicated? Urine Opiates Screen Urine Fentanyl Screen Ur Barbiturates Screen U Amphetamin/Meth Scrn U Benzodiazepines Scrn U Cocaine Metab Screen U Marijuana (THC) Screen Quality Measures Quality Measures none Advance care planning discussed with:: patient and other Assessment & Plan Assessment Current Active Medications: Generic Name Dose Route Start Last Admin Trade Name Freq PRN Reason Stop Dose Admin Acetaminophen 650 mg 02/01/25 15:31 Acetaminophen 325 Mg Tablet PO 03/03/25 15:30 Q6H PRN Fever >100.4 or pain 1-3 Heparin Sodium/Dextrose 25,000 unit in 250 mls @ 6.587 mls/hr 02/01/25 18:00 02/02/25 09:33 Heparin In D5w Ivpb IV 02/15/25 17:29 12 units/kg/hr .Q24H YOANDY 6.587 mls/hr Protocol Titration 12 UNITS/KG/HR Metoprolol Succinate 50 mg 02/01/25 14:15 02/02/25 08:59 Metoprolol Succinate Xl 25 Mg Tabcr PO 03/03/25 14:14 50 mg QDAY YOANDY Administration Ondansetron HCl 4 mg 02/01/25 15:31 Ondansetron Inj 2 Mg/Ml Inj 2 Ml IVP 03/03/25 15:30 Q6H PRN NAUSEA OR VOMITING Protocol Sennosides 1 tab 02/01/25 15:31 Senna Tablet PO 03/03/25 15:30 QDAY PRN constipation Protocol Plan Summary: Ms. Pinedo is a 74-year-old female with no significant past medical history who presented to [facility] emergency department on February 01, 2025 with a chief complaint of chest pressure and palpitations. Patient admitted for new onset atrial fibrillation rapid ventricular response. #New onset atrial fibrillation with rapid ventricular response #Symptomatic palpitations Reported that around 2 AM this morning she woke up with 10/10 left upper chest pressure radiating to the left jaw associated with diaphoresis and shortness of breath, during which she noted her heart rate to be 140?160 during that time. Endorses significant palpitations which are symptomatic and feels like her heart is beating out of her chest. Complained of having similar episodes a few times over the past years and she is following hand upper and bottom lacer Dr. Robbins outpatient for similar complaints but all her outpatient workup was negative. Reported that for the past week and a half she has been having flulike symptoms with low-grade fever sore throat and some congestion which resolved about 2 days ago and during this time she has been not feeling well. Patient currently denies any dizziness, falls, syncope, presyncope, shortness of breath, PND, leg swelling and orthopnea. EKG in the emergency department shows atrial fibrillation, rate controlled rate 92. Patient was given 20 mEq of potassium, metoprolol succinate 50 mg p.o. and was started on heparin drip in the ED Troponin on presentation less than 0.020, BNP 253 HDL 66, LDL 69, cholesterol 144, triglyceride 47 TSH 1.72, free T4 1.12, hemoglobin A1c 5.2 [id number] Score for Atrial Fibrillation Stroke Risk: 2 points; 2.9% risk of stroke/TIA/systemic embolism HAS-BLED Score for Major Bleeding Risk: 1 points, 1.02 bleeds per 100 patient-years in another validation study -ECHO (02/01/2025) 1. Left ventricle size is normal and systolic function is normal. Estimated ejection fraction is 60-65%. There is indeterminate diastolic function. 2. Right ventricle chamber size is normal and systolic function is normal. Estimated RVSP is 19 mmHg. 3. There is mild mitral and tricuspid valve regurgitation. 4. Normal IVC with estimated RA pressure 3 mmHg. Recommendations: - Continue metoprolol succinate 50 mg daily - Start heparin GTT change to Eliquis 5mg po bid on discharge -Patient currently in sinus rhythm. No need for ANGELO with cardioversion - Keep potassium greater than 4 and magnesium greater than 2 at all times - Ordered echocardiogram to assess LA size, LV/RV size and function Attending Provider Attestation/Addendum I have personally seen and examined the patient separately on the above date of service and discussed the plan of care with the resident. I reviewed the resident Dr. Yanely Hendrickson consultation progress note and agree with the resident findings and plan in the note above and have also edited the documentation to reflect my findings and plan. Michael Stockton M.D. Interventional Cardiology
[2025-02-02 14:29] LABS: Partial Thromboplastin Time 51.4 Seconds (22.0-36.0)
--- NOTE | 2025-02-02 16:05 | ESDS_ITS ---
<Statement entered by Marta Mixon MD - 02/03/25 07:26> Patient was seen and examined by me personally. I have reviewed the below documentation by the team resident and agree with its findings with any exceptions as below. Discharge plan was discussed with the attending, Dr. Hartley. Marta Mixon, PGY-3 Planned Discharge Date 02/02/25 DS: Providers Provider Date of admission: 02/01/25 15:08 Primary care physician: Physician No Primary/Family Admitting Provider: Nini Partida MD Attending Provider on Admission: Nini Partida MD Consults: 02/01/25 14:16 Consult to Cardiology Stat Comment: Consulting Provider: Michael Stockton Attending Provider on DC: Rolan Hartley DO Discharging Provider: Rolan Hartley DO DS: Diagnosis Problem List Completed Was Problem List Reviewed/Reconciled?: Yes Hospital Course Hospital Course Hospital course: Summary: Lolis Pinedo 74F pmhx significant for paroxysmal atrial fibrillation (no anticoag) who presented to [facility] ED 02/01 with 1 day of chest pressure and palpitations, admitted for symptomatic new onset atrial fibrillation RVR. For 1.5 weeks prior to admission flulike symptoms with low-grade fever, sore throat and congestion which resolved on its own a day prior to admission. Day before admission, endorsed heavy activity but no chest pain during exertion. At about 2 AM morning of admission, woke up to 10/10 left upper chest pressure radiating to left jaw, associated with diaphoresis and shortness of breath; she noted her HR varied from 140-160 bpm at the time. In ED, patient was symptomatic with chest pressure and palpitations noted to be in atrial fibrillation RVR. Cardiology was consulted, and patient was initially to undergo ANGELO cardioversion due to symptomatic atrial fibrillation RVR however on telemetry, patient converted to sinus rhythm since night of admission after metoprolol administration. Cardiology recommends metoprolol XL 50 mg daily and Eliquis 5 mg twice daily for atrial fibrillation. On discharge, patient is hemodynamically stable, labs and vitals reviewed to be stable and patient is ready to be discharged back home. Imaging: TTE: LV size normal systolic function normal. Estimated EF 60 to 65%, indeterminate diastolic function. RV size normal systolic function normal. RVSP 19 mmHg, mild MVR and TVR. Normal IVC estimated RA pressure 3 mmHg. CXR: no lobar PNA or pulmonary edema Discharge Recommendations: - Please take all medications as prescribed - START metoprolol XL 50 mg daily and Eliquis 5 mg twice daily - Continue all home medications except as above - Please follow up with your PCP within one week of discharge - If your symptoms worsen, please seek immediate medical attention and return to your nearest emergency room. - If you do not have a PCP, you may follow up at the [facility] at [address] [place] [address] [address] [id number], Hospital Diagnoses: #New onset atrial fibrillation with rapid ventricular response #Symptomatic palpitations Plan of care discussed with attending Dr. Hartley, and PGY-3 Dr. Mixon. Micki Tanner, DO Internal Medicine, PGY-1 Time Spent with Patient Time attestation: Total time spent providing and/or coordinating discharge services: Time spent: Greater than 30 minutes Exam Vital Signs Temp Pulse Resp BP Pulse Ox O2 Del Method 96.9 F 58 L 14 118/65 99 Room Air 02/02/25 11:41 02/02/25 12:00 02/02/25 11:41 02/02/25 11:41 02/02/25 11:41 02/02/25 11:41 Narrative Exam GENERAL: AOx3, no acute distress HEENT: mucous membranes moist, bilateral sclera anicteric CARDIOVASCULAR: regular rate and rhythm, S1/S2 present, no murmurs appreciated PULMONARY: clear to auscultation bilaterally, no rales/rhonchi/wheezes ABDOMINAL: soft, non-tender, non-distended, no rebound/guarding, bowel sounds present EXTREMITIES: no peripheral edema SKIN: warm and dry, intact, no rashes NEURO: CN II-XII grossly intact, no focal deficits, alert, following commands Discharge Plan Plan Patient Disposition: HOME (Self Care) Patient condition on transfer: Stable Care Plan Goals: Instructions: -New Medication of Eliquis 5 mg twice daily for Atrial Fibrillation. This medication puts you at increased risk of bleeding, if you experience a fall or have bleeding, please contact your provider for further recommendations or seek immediate medical attention. -New Medication of Metoprolol Succinate 50 mg once daily for your heart rate. -Please follow up with cardiology, Dr. Stockton, within 2 weeks of discharge. -Please follow up with your primary care provider within one week of discharge -If your symptoms worsen,please seek immediate medical attention and return to your nearest emergency room -If you do not have a primary care provider, you may follow up at the [facility] at [address] [place] [address] [address], [place] [address], Prescriptions/Referrals Prescriptions/Med Rec: New metoprolol succinate 50 mg tablet extended release 24 hr 50 mg PO QDAY 30 Days Qty: 30 0RF apixaban 5 mg tablet 5 mg PO BID 30 Days Qty: 60 0RF Referrals: Michael Stockton MD [Physician, Cardiology] No Primary/Family,Physician [Primary Care Provider] Patient/Caregiver Discharge Instructions Education Materials: Apixaban oral tablets, AFL/Afib Print Language: Estonian Stand Alone Forms: [employer] Award Info., Patient Portal Info Letter Discharge Order Discharge Orders: Discharge (Routine); Ordered 02/02/25 Ordered By: Radha Arceo Quality Discharge Quality Measures VTE prophylaxis MD Attestestation MD Attestation I have discussed and was present for the essential components of the discharge history, physical examination, diagnosis, and discharge treatment plan with the resident. I agree with the patient's discharge care as documented by the resident and amended herein by me. Lex Hartley DO. The patient understood all discharge instructions, all questions were answered satisfactorily. The patient was instructed to return to the Emergency Department is symptoms worsened or persisted. Patient was stable, afebrile, tolerating p.o. intake at time of discharge home. Although this document has been carefully reviewed, there may still be some phonetic and other typographical errors. These errors are purely grammatical due to imperfections in the software program and should not be construed in any way to compromise the substance of the patient's medical care during this visit.
[2025-02-02] MEDS: APIXABAN 2.5 MG TABLET 5 MG PO (16:38)
--- NOTE | 2025-02-02 18:07 | PC.NURSE ---
CALLED [facility] [address], TALKED TO PHARMACIST STATED, PATIENT HAS A CO PAY OF 570 DOLLARS, PATIENT AWARE AND STATES SHE CAN NOT AFFORD COPAY, DR. VEGA MADE AWARE OF SITUATION. DR. VEGA TO REACH OUT TO [facility] [facility].
--- NOTE | 2025-02-02 18:42 | PC.NURSE ---
DR. SALAZAR NOTIFIED OF PATIENT'S SITUATION WITH ELIKILO, HER COPAY IS 570 DOLLARS, AND PATIENT STATES SHE CAN NOT AFFORD IT. DR. SALAZAR STATED HE WILL SPEAK TO THE RESIDENTS AND HE WILL LET THEM KNOW, AND THEN THEY WILL LET NURSING STAFF KNOW OF PLAN.
--- NOTE | 2025-02-02 19:00 | PC.NURSE ---
PER DR. MORAN INSTRUCTIONS, PATIENT TO GO TO DR. MCKOY OFFICE TOMORROW BETWEEN 8-12 FOR ELIQUIS, PATIENT INFORMED AND VERBALIZED UNDERSTANDING.
== END 2025-02-02 19:15 | disposition home or self-care (01) | DRG 310 ==
LOC: SERX 15:01 → SERHOLD 15:13 → S2NX 16:56
PROVIDERS: Internal Medicine Cardiovascular Disease; Admitting Provider Student in an Organized Health Care Education/Training Program; Emergency Provider Emergency Medicine; Visit Provider Student in an Organized Health Care Education/Training Program
DX: I48.0 Paroxysmal atrial fibrillation (principal); Z79.899 Other long term (current) drug therapy; Z88.5 Allergy status to narcotic agent; Z88.1 Allergy status to other antibiotic agents
CPT/HCPCS: 36415; 71045; 80053; 80061; 80307; 81001; 83036; 83605; 83735; 83880; 84100; 84145; 84439; 84443; 84484; 85025; 85610; 85730; 93005; 93306; 99284; J1644; A9270